=== PATIENT | male | born 1960 | race Caucasian/White ===

== ENCOUNTER 2020-02-12 11:15 | Outpatient (CLI) | payer OTHER, MEDICAID, SELFPAY ==
--- NOTE | 2020-02-12 08:20 | DI.RAD_ITS ---
EXAM: XR SHOULDER RT COMPLETE 2+V CLINICAL HISTORY: right shoulder pain. TECHNIQUE: 2D digital imaging was performed. COMPARISON: No exams were available for comparison FINDINGS: BONES: No acute fracture is present. No bony destructive lesion is seen. JOINTS: No dislocation present. There is a large calcification adjacent to the greater tuberosity con sistent with calcific tendinitis. There are [id number] degenerative changes of the acromioclav icular joint. There are mild degenerative changes seen at the glenohumeral joint. SOFT TISSUE: Normal. IMPRESSION: Degenerative changes of the right shoulder. Calcific tendinitis. DATA REPOSITORY: RADIATION DOSE DELIVERED:
== END 2020-02-12 11:35 ==
PROVIDERS: PCP Physician Assistant Medical; Referring Provider Physician Assistant Medical; Visit Provider Student in an Organized Health Care Education/Training Program
DX: M19.011 Primary osteoarthritis, right shoulder (principal); M75.31 Calcific tendinitis of right shoulder; M75.32 Calcific tendinitis of left shoulder; J44.9 Chronic obstructive pulmonary disease, unspecified; F17.210 Nicotine dependence, cigarettes, uncomplicated; Z79.891 Long term (current) use of opiate analgesic
CPT/HCPCS: 20610; 99204; 73030; J1030

== ENCOUNTER 2020-04-01 09:30 | Outpatient (CLI) | payer OTHER, MEDICAID, SELFPAY ==
--- NOTE | 2020-04-01 08:00 | DI.RAD_ITS ---
EXAM: XR SHOULDER LT COMPLETE 2+V CLINICAL HISTORY: f/u. TECHNIQUE: 2D digital imaging was performed. COMPARISON: There are no previous for comparison. FINDINGS: BONES: No acute fracture is present. No bony destructive lesion is seen. There is a tiny calcificatio n adjacent to the lateral aspect of the humeral head suspicious for calcific tendinitis. JOINTS: No dislocation present. SOFT TISSUE: Normal. IMPRESSION: Calcific tendinitis. Otherwise unremarkable. DATA REPOSITORY: RADIATION DOSE DELIVERED:
== END 2020-04-01 09:31 | disposition home or self-care (01) ==
LOC: DIORS 09:30
PROVIDERS: PCP Physician Assistant Medical; Referring Provider Physician Assistant Medical; Visit Provider Student in an Organized Health Care Education/Training Program
DX: M75.32 Calcific tendinitis of left shoulder (principal); M75.31 Calcific tendinitis of right shoulder; M19.012 Primary osteoarthritis, left shoulder; M19.011 Primary osteoarthritis, right shoulder; F17.210 Nicotine dependence, cigarettes, uncomplicated
CPT/HCPCS: 20610; 99214; 73030; J1030

== ENCOUNTER → 2020-07-16 07:59 | Outpatient (BNVA) | payer OTHER, MEDICAID, SELFPAY | PROVIDERS: PCP Physician Assistant Medical; Referring Provider Physician Assistant Medical; Visit Provider Student in an Organized Health Care Education/Training Program | DX: M75.32 Calcific tendinitis of left shoulder (principal); M75.21 Bicipital tendinitis, right shoulder; M75.31 Calcific tendinitis of right shoulder; M19.012 Primary osteoarthritis, left shoulder; M75.22 Bicipital tendinitis, left shoulder; M19.011 Primary osteoarthritis, right shoulder | CPT/HCPCS: 20610; 99214; J1030 ==

== ENCOUNTER → 2020-11-12 09:11 | Outpatient (BNVA) | payer OTHER, MEDICAID, SELFPAY | PROVIDERS: PCP Physician Assistant Medical; Referring Provider Physician Assistant Medical; Visit Provider Student in an Organized Health Care Education/Training Program | DX: M75.21 Bicipital tendinitis, right shoulder (principal); M75.22 Bicipital tendinitis, left shoulder; M19.011 Primary osteoarthritis, right shoulder; M19.012 Primary osteoarthritis, left shoulder; M75.31 Calcific tendinitis of right shoulder; M75.32 Calcific tendinitis of left shoulder | CPT/HCPCS: 20610; 99213; J1030 ==

== ENCOUNTER → 2021-01-27 14:40 | Outpatient (BNVA) | payer MEDICARE, SELFPAY | PROVIDERS: PCP Physician Assistant Medical; Referring Provider Physician Assistant Medical; Visit Provider Student in an Organized Health Care Education/Training Program | DX: M75.21 Bicipital tendinitis, right shoulder (principal); M19.011 Primary osteoarthritis, right shoulder; M75.22 Bicipital tendinitis, left shoulder; M19.012 Primary osteoarthritis, left shoulder; M75.31 Calcific tendinitis of right shoulder; M75.32 Calcific tendinitis of left shoulder | CPT/HCPCS: 20610; 99213; J1030 ==

== ENCOUNTER 2021-03-31 01:16 | Outpatient (CLI) | payer MEDICARE, SELFPAY ==
--- NOTE | 2021-03-31 08:20 | DI.MRI_ITS ---
Exam(s) MR UPPER JOINT RT WO EXAM: MR UPPER JOINT RT WO CLINICAL HISTORY: PAIN,tendonitis biceps,arthritis rt ac joint, calcific tendinitis,m75.21,. TECHNIQUE: Multiplanar multisequence MRI was performed. COMPARISON: MR MR SHOULDER RT WO CONTRAST from 01/16/2020 CR XR SHOULDER RT COMPLETE 2+V from 02/12/2020 FINDINGS: BONES: There is no fracture or contusion pattern. JOINTS: Moderate hypertrophic degenerative changes are seen at the acromioclavicular joint. There ar e degenerative changes seen at the glenohumeral joint with subchondral cysts present. TENDONS: Supraspinatus: There is a partial bursal surface tear of the supraspinatus tendon at its insertion si te. Infraspinatus: Unremarkable. Subscapularis: There is mild tendinosis of the subscapularis tendon. Teres Minor: Unremarkable. Biceps and [place]: Unremarkable. MUSCLES: Unremarkable. GLENOID LABRUM: There is hyperintense signal seen in the superior and anterior labrum. This may repr esent degeneration versus a tear. It has a similar appearance compared to the MRI from 01/03/2020. SOFT TISSUES: The large area of hypointense signal adjacent to the humeral greater tuberosity is not visualized on the current examination. The calcification appears to have been removed. LIGAMENTS: Unremarkable. OTHER: There is a small amount of fluid in the subacromial subdeltoid bursa. IMPRESSION: 1. Findings of removal of the calcification associated with the supraspinatus tendon. 2. Findings suggestive of a partial tear of the supraspinatus tendon at its insertion site. 3. Tendinosis involving the subscapularis tendon. 4. Degeneration and/or tear involving the anterior and superior labrum. 5. Degenerative changes seen at the acromioclavicular joint and glenohumeral joint. DATA REPOSITORY:
== END 2021-03-31 01:36 ==
PROVIDERS: PCP Physician Assistant Medical; Visit Provider Student in an Organized Health Care Education/Training Program
DX: M25.511 Pain in right shoulder (principal); M19.011 Primary osteoarthritis, right shoulder; M75.21 Bicipital tendinitis, right shoulder; M25.411 Effusion, right shoulder; M75.31 Calcific tendinitis of right shoulder; M75.101 Unspecified rotator cuff tear or rupture of right shoulder, not specified as traumatic
CPT/HCPCS: 73221

== ENCOUNTER → 2021-04-08 08:28 | Outpatient (BNVA) | payer MEDICARE, SELFPAY | PROVIDERS: PCP Physician Assistant Medical; Referring Provider Physician Assistant Medical; Visit Provider Student in an Organized Health Care Education/Training Program | DX: M75.51 Bursitis of right shoulder (principal); M75.52 Bursitis of left shoulder; M75.41 Impingement syndrome of right shoulder; M75.42 Impingement syndrome of left shoulder; M75.31 Calcific tendinitis of right shoulder; M75.32 Calcific tendinitis of left shoulder | CPT/HCPCS: 99214 ==

== ENCOUNTER 2021-06-25 02:33 | Outpatient (CLI) | payer MEDICARE, SELFPAY ==
--- NOTE | 2021-06-25 07:57 | DI.RAD_ITS ---
Exam(s) XR CHEST 2V PA LATERAL EXAM: XR CHEST 2V PA LATERAL CLINICAL HISTORY: DYSPNEA R06.00 TECHNIQUE: COMPARISON: CR XR SHOULDER RT COMPLETE 2+V from 02/12/2020 CR XR SHOULDER LT COMPLETE 2+V from 04/01/2020 FINDINGS: No prior chest radiographs available for comparison but prior left shoulder radiographs of March 25 show apparent scarring in the left upper lobe, this is unchanged on today's examination. There a re areas of scarring throughout both lungs and there appears to be moderate to severe emphysema. No focal consolidation. No pleural effusion. Normal cardiac size. IMPRESSION: No evidence of acute process. RADIATION DOSE DELIVERED: Total DLP
== END 2021-06-25 02:53 ==
PROVIDERS: PCP Physician Assistant Medical; Visit Provider Physician Assistant Medical
DX: R06.09 Other forms of dyspnea (principal); J43.8 Other emphysema; J98.4 Other disorders of lung
CPT/HCPCS: 71046

== ENCOUNTER → 2021-08-17 01:41 | Outpatient (CLI) | payer MEDICARE, SELFPAY ==
--- NOTE | 2021-08-17 | DI.NM_ITS ---
APPROVED REPORT Exam: Exercise Treadmill Patient Location: Out-Patient Room/Bed: Stress Nurse: Sonali Jaffe RN Ordering Provider:SUSAN WONG, Contact Number: [phone] BMI: 24.82 Baseline Rhythm: Sinus Rhythm Indications: Chest pain, abnormal EKG Medical History Medical History: COPD, asthma, smoker (recently quit), gastritis, hyperglycemia Cardiac Medications: Advair Allergies: Metaxalone, fexofenadine, hydromorphone Cardiac Risk Factors: Asthma, COPD, smoker (recently quit) Previous Cardiac Procedures: None Pretest Chest Pain Characteristics: None Exercise History: Indeterminate Physical Disabilities: None Lung Sounds: R side diminished w/ expiratory wheezes Heart Sounds: Regular Stress Test Details Test: Exercise stress testing was performed using a Philipp protocol. Nuclear Acquisition: Rest Tc-99m/Stress Tc-99m 1 day Rest Isotope: Tc-99m Sestamibi. Dose: 9.7 Date: 08/17/2021 Injection Time: 0900 Stress Isotope: Tc-99m Sestamibi. Dose: 32.0 Date: 08/17/2021 Injection Time: 1152 HR Resting HR Supine: 67 bpm Max Heart Rate (APMHR): 157.101124 bpm Resting HR Standin bpm Target HR (85% APMHR): 133.501833 bpm Max HR Achieved: 136 bpm % of APMHR: 86.62 Recovery HR: 61 bpm HR response to stress: Normal HR response to stress BP Resting BP Supine: 112/72 mmHg Max BP: 160/92 mmHg Recovery BP: 112/72 mmHg BP response to stress: Normal blood pressure response to stress. ECG Resting ECG: Sinus Rhythm Ectopy: None Stress ECG: Sinus Tachycardia ST Change: No significant ST segment changes noted Arrhythmia: Frequent PACs, rare PVC Recovery ECG: Sinus Rhythm Recovery ST Change: No significant ST segment changes noted Recovery Arrhythmia: Rare PACs and PVC Clinical Reason for Termination: Fatigue Stress Symptoms: General Fatigue, Chest pain, Dyspnea Exercise duration: 4 min06 sec Highest Stage Reached: Stage 2: 2.5 mph at 12% grade. Exercise capacity: 5.95 METs Angina Score: Non-Limiting Valiente Treadmill Score: -0.5 Rate Pressure Product: [id number] Stress ECG Conclusion 1. Resting electrocardiogram showed right axis deviation, poor R wave progression 2. The patient exercised on the Philipp protocol and completed a workload of 5.95 METS 3. Normal heart rate and blood pressure response to exercise. Patient achieved 86% of predicted hear t rate for age 4. There was no electrocardiographic evidence of myocardial ischemia 5. There were no significant dysrhythmias 6. See MPI report Valiente Treadmill Score is -0.5 which is Moderate risk. Stress Test Summary STAGE Time (mins) Speed (mph) Grade (%) HR BP SYMPTOMS METS Supine 67 112/72 Standing 83 SpO2 97% 1 3 1.7 10 114 160/92 SpO2 91% 4.6 2 6 2.5 12 117 L side CP 1/10, mild SOB, SpO2 90% 7 1 min recovery 103 152/82 Symptoms improving, SpO2 91% 3 min recovery 66 128/72 CP and SOB resolved, SpO2 95% 6 min recovery 61 112/72 SpO2 97% MPI Conclusion Myocardial perfusion is normal without evidence of ischemia or prior infarction EF 51%, normal wall motion Radiologist Interpretation Radiologist Interpretation by: Luc Sanchez MD Interpretation Date/Time: 08/18/2021 17:10:01
== END ==
PROVIDERS: PCP Physician Assistant Medical; Visit Provider Physician Assistant Medical
DX: R07.9 Chest pain, unspecified (principal)
CPT/HCPCS: 78452; 93016; 93018; 93017

== ENCOUNTER → 2021-11-17 01:51 | Outpatient (CLI) | payer MEDICARE, SELFPAY ==
--- NOTE | 2021-11-17 14:05 | DI.US_ITS ---
APPROVED REPORT EXAM: Comprehensive 2D, Doppler, and color-flow Echocardiogram Patient Location: Out-Patient Joint Runner: Esther Zavala RDCS ([place]) Indications: Dyspnea, SOB on exertion, Evaluate valves Other Information Study Quality: Fair. Technically limited study due to body habitus.smoker. Conclusion Normal left ventricular wall thickness and chamber size. Estimated ejection fraction is 55%. Wall m otion is normal Right ventricle is not well visualized Both atria are normal in size Aortic valve is sclerotic and trileaflet without stenosis or regurgitation Mild mitral annular calcification. Trace mitral regurgitation Normal tricuspid valve with trace regurgitation Wall motion Left Ventricle The left ventricle is normal size. Left ventricular systolic function is borderline normal. There is normal left ventricular wall thickness. Regional wall motion is grossly normal. There is no ventricul ar septal defect visualized. LVEF is 55%. Right Ventricle Right ventricle is not well visualized. Right ventricular systolic function could not be assessed. Atria The left atrium size is normal. The right atrium size is normal. The interatrial septum is intact wit h no evidence for an atrial septal defect. Aortic Valve The Aortic valve is sclerotic. Aortic valve is trileaflet. There is no aortic valvular stenosis. No a ortic regurgitation is present. Mitral Valve Mild mitral annular calcification. No evidence of mitral valve stenosis. Trace mitral regurgitation. Tricuspid Valve The tricuspid valve is normal in structure. There is no tricuspid valve stenosis. Trace tricuspid reg urgitation. Unable to assess PA pressure. Pulmonic Valve The pulmonary valve is normal in structure. There is no pulmonic valvular stenosis. There is no pulmo hailey valvular regurgitation. Great Vessels The aortic root is normal in size. Ascending aorta is not well visualized. IVC is normal in size and collapses >50% with inspiration. Pericardium There is no pericardial effusion. 2D Dimensions IVSD d PLAX 0.83 cm M: 0.6-1.2 LV Vol A2C d MOD 98.0 mL LVPW d PLAX 0.82 cm M: 0.6 - 1.2 LV Vol A4C d MOD 125.6 mL LVID d PLAX 4.48 cm M: 4.2 - 5.8 LA vol/ BSA A2C s A-L 10.9 mL/m2 LVDs 3.30 cm M: 2.5 - 4.0 LA vol/ BSA A4C s A-L 18.7 mL/m2 Ao Root d 3.19 cm M: 3.1 - 3.7 LA Vol/ BSA Biplane s A-L 15.3 mL/m2 RA Area A4C 8.73 cm2 LA Area A4C s MOD 13.38 cm2 RA Vol/ BSA A4C s A-L 10.2 mL/m2 LA Area A2C s MOD 9.52 cm2 LV EF Teichholz 51.6 % LV EF A4C MOD 50.3 % LVEF ([place]'s) 51.33 % M: 52 - 72 LV EF A2C MOD 51.8 % LV Volume 84.78 mL M: 62 - 150 LV EF Biplane MOD 51.3 % LV Volume Index 43.47 mL/m2 M: 34 - 74 SV 57.61 mL LV Vol Biplane MOD 112.2 mL SV Index 29.42 mL/m2 FS 26.20 % M-Mode TAPSE 1.97 cm (M/F) >1.7 LV Diastology MV E' medial 0.094 (>0.07 m/s) E/A Ratio 1.2 LV E/e MED 8.00 (<14) MV E Vmax 0.75 (0.4-1.3 m/s) MV E' lateral 0.116 (>0.1 m/s) MV A Vmax 0.65 (0.4-1.3 m/s) LV E/e LAT 6.45 (<14) MV E/A Ratio 1.13 MV E/E' medial 8.02 MV E/E' lateral 6.47 Aortic Valve LVOT Area 2.79 cm2 AoV Area Vmax 2.56 cm2 LVOT Vmax 1.05 m/s AoV Area/ BSA (Vmax) 1.31 cm2/m2 LVOT Mean Jenaro. 0.67 m/s KEENAN Mean Jenaro. 2.05 cm2 LVOT Peak Grad 4.4 mmHg KEENAN Mean Jenaro. Index 1.05 cm2/m2 LVOT Mean Grad 2.1 mmHg LVOT VTI 0.188 m LVOT Diam s 1.85 cm AoV Vmax 1.15 m/s Velocity Ratio 0.91 AoV Mean Jenaro. 0.91 m/s AoV Peak Grad 5.3 mmHg LVOT SV 52.40 mL AoV Mean Grad 3.6 mmHg AoV VTI 0.197 m AoV Area VTI 2.66 cm2 AoV Area/ BSA (VTI) 1.36 cm/m2 Mitral Valve MV DT 155 (160-240 msec) MV PHT 45 msec MV Area PHT 4.90 cm2 Pulmonary Valve PV Vmax 0.90 (0.5-1.5 m/s) RVOT Peak Gr. 1.89 mmHg PV Peak Grad 3.3 mmHg RVOT Mean Gr. 0.85 mmHg PV Mean Grad 1.7 mmHg RVOT VTI 0.123 m PV VTI 0.145 m RVOT Vmax 0.69 m/s
== END ==
PROVIDERS: PCP Physician Assistant Medical; Visit Provider Physician Assistant Medical
DX: R06.00 Dyspnea, unspecified (principal)
CPT/HCPCS: 93306

== ENCOUNTER → 2025-01-04 03:00 | Outpatient (CLI) | payer MEDICARE, SELFPAY ==
--- NOTE | 2025-01-04 07:30 | DI.US_ITS ---
APPROVED REPORT EXAM: Comprehensive 2D, Doppler, and color-flow Echocardiogram Patient Location: Out-Patient Vp Software: Chavez Simeon RDCS ([place]) Indications: Endocarditis Other Information Study Quality: Poor. Technically limited study due to body habitus. Conclusion Technically difficult and suboptimal study Normal left ventricular size, wall thickness and systolic function Dilated right ventricle with preserved systolic function Both atria are normal in size Within the limits of the study no significant valvular disease is identified Estimated right ventricular systolic pressure is 46 mmHg Wall motion Left Ventricle The left ventricle is normal size. There is normal left ventricular wall thickness. There is no ventricular septal defect visualized. LVEF is55%. Right Ventricle Right ventricle is mildly dilated. The right ventricular systolic function is normal. Atria The left atrium size is normal. The right atrium size is normal. The interatrial septum is intact with no evidence for an atrial septal defect. Aortic Valve The aortic valve is normal in structure. There is no aortic valvular stenosis. No aortic regurgitation is present. Mitral Valve The mitral valve is normal in structure. No evidence of mitral valve stenosis. There is no mitral valve regurgitation noted. Tricuspid Valve The tricuspid valve is normal in structure. There is no tricuspid valve stenosis. Trace tricuspid regurgitation. The RVSP is 45.6 mmHg. Pulmonic Valve The pulmonary valve is normal in structure. There is no pulmonic valvular stenosis. There is no pulmonic valvular regurgitation. Great Vessels The aortic root is normal in size. Ascending aorta is not well visualized. IVC is normal in size and collapses >50% with inspiration. Pericardium There is no pericardial effusion. 2D Dimensions IVSD d PLAX 0.61 cm M: 0.6-1.2 Ao Root d 3.00 cm M: 3.1 - 3.7 LVPW d PLAX 0.59 cm M: 0.6 - 1.2 LVID d PLAX 5.96 cm M: 4.2 - 5.8 LVDs 4.19 cm M: 2.5 - 4.0 LV EF Teichholz 55.9 % FS 29.70 % LV EDV (Teich) 177.0 mL LV ESV (Teich) 78.0 mL Stroke Vol Index (Teich) 46.69 M-Mode TAPSE 2.49 cm (M/F) >1.7 LV Volumes - Method of Disks ([place]'s) Single Plane 2D LV Volumes Biplane 2D LV Volumes LV EDV A4C 69.6 mL LV EDV BP 52.32 mL M: 62 - 150 LV ESV A4C 35.4 mL LV ESV BP 25.5 mL LVEF(%) A4C 49.1 % LVEF(%) BP 51.31 % M: 52 - 72 LV EDV A2C 37.7 mL LV EDV BP Index 24.67 mL/m2 M: 34 - 74 LV ESV A2C 16.5 mL SV BP LVEF(%) A2C 56.2 % SV Index LA Volume LA Length A4C 3.1 cm LA Length A2C LA Area A4C s 5.80 cm2 LA Area A2C s LA Vol A4C A-L 9.30 mL LA Vol A2C A-L LA Vol Biplane A-L LA Vol A4C MOD 8.0 mL LA Vol A2C MOD LA Vol BP MOD RA Volume RA Area A4C 4.1 cm2 RA ESV A4C (A-L) 6.9mL RA Vol/BSA A4C A-L RA Length A4C 2.1 cm RA ESV A4C (MOD) 6.7mL LV Diastology MV E' medial 0.081 (>0.07 m/s) MV E Vmax 0.65 (0.4-1.3 m/s) MV E/E' MED 7.95 (<14) MV A Vmax 0.70 (0.4-1.3 m/s) MV E' lateral 0.077 (>0.1 m/s) E/A Ratio 0.9 MV E/E' LAT 8.36 (<14) MV E' Average 0.079 m/s MV E/E'(average) 8.15 Aortic Valve AoV Vmax 1.00 m/s LVOT Vmax 0.67 m/s AoV Peak Grad 4.0 mmHg LVOT Peak Grad 1.8 mmHg AoV Area (Vmax) 2.00 cm2 LVOT VTI 0.145 m AoV VTI 0.214 m LVOT Mean Grad 1.1 mmHg AoV Mean Jenaro. 0.77 m/s LVOT SV 43.33 mL AoV Mean Grad 2.5 mmHg LVOT Diam s 1.95 cm AoV Area (VTI) 2.03 cm2 AV Regurg Peak Gr. 3.98 mmHg Velocity Ratio 0.67 Mitral Valve MV DT 243 (160-240 msec) Pulmonary Valve PV Vmax 0.81 (0.5-1.5 m/s) RVOT Vmax 0.48 m/s PV Peak Grad 2.6 mmHg RVOT Peak Gr. 0.9 mmHg PV Mean Jenaro 0.48 m/s RVOT VTI 0.071 m PV Mean Grad 1.1 mmHg RVOT Mean Gr. 0.4 mmHg Tricuspid Valve RA Pressure 3.00 mmHg TR Vmax 3.27 m/s TR Peak Grad 42.7 mmHg RVSP (TR) 45.7 mmHg
== END ==
PROVIDERS: PCP Physician Assistant Medical; Visit Provider Neuromusculoskeletal Medicine & OMM
DX: I38 Endocarditis, valve unspecified (principal); I51.7 Cardiomegaly
CPT/HCPCS: 93306